=== PATIENT | male | born 1955 | race Caucasian/White ===

== ENCOUNTER → 2019-05-10 | Outpatient (CLI) | payer BC, MEDICARE ==
--- NOTE | 2019-05-10 09:19 | RAD ---
PROVIDED CLINICAL HISTORY/REASON FOR EXAM: M25.562,M25.552 Findings: Number of images: Four Location: Left knee Small joint effusion. No acute fracture. Obliteration of the medial compartment with lateral tibial translation, subchondral sclerosis and cyst formation. Tricompartmental osteophytes. Marked patellofemoral narrowing. IMPRESSION: Marked left knee osteoarthritis. No acute fracture. Electronically signed by: Shane Sorto MD 05/10/2019 9:18 AM CDT
--- NOTE | 2019-05-10 09:21 | RAD ---
PROVIDED CLINICAL HISTORY/REASON FOR EXAM: M25.562,M25.552 Findings: Number of images: One Location: Pelvis Lower lumbar spondylosis. Heterogeneous sclerosis overlying the left iliac bone measuring 2.1 cm. This is indeterminate whether it is within soft tissues or the bone itself. No acute fracture. Mild bilateral hip osteoarthritis. No dislocation. Osteopenia. IMPRESSION: 1. Heterogeneous sclerosis overlying the left iliac bone. Recommend CT pelvis for further evaluation. 2. No acute fracture or dislocation. Electronically signed by: Shane Sorto MD 05/10/2019 9:20 AM CDT
== END ==
LOC: RAD 08:05
PROVIDERS: ATTEND Orthopaedic Surgery
DX: M17.12 Unilateral primary osteoarthritis, left knee (principal); M89.8X8 Other specified disorders of bone, other site; M25.552 Pain in left hip

== ENCOUNTER 2019-06-26 05:54 | Inpatient (IN) | payer MEDICARE ==
--- NOTE | 2019-06-14 07:58 | HP ---
CHIEF COMPLAINT: Left knee pain. HISTORY OF PRESENT ILLNESS: Mr. Franks is a 63-year-old male with a history of pain in the knee that has been going on for years. It has been getting progressively worse and he has had multiple injections. He has had knee arthroscopy as well. His pain continues to be a 10 in intensity although he does work. The pain does affect his daily activities. It is sharp in nature and aching at night. He takes occasional Tylenol and Aleve, but this fails to give him full relief. Because of his ongoing symptoms and failure of conservative measures, he has requested operative intervention. This does not seem to affect his contralateral side. He has requested total knee arthroplasty. PAST SURGICAL HISTORY: 1. Knee arthroscopy. MEDICATIONS: 1. Zyrtec. 2. Tylenol. 3. Aleve. PAIN CONTRACT: None. ALLERGIES: NO KNOWN DRUG ALLERGIES. CODE STATUS: Full code. IMMUNIZATIONS: Up to date. SOCIAL HISTORY: He smokes about one pack a day, drinks a couple of times a week, but does not use any recreational drugs. FAMILY HISTORY: None pertinent to today's complaint. REVIEW OF SYSTEMS: Negative except as indicated in the History of Present Illness. PHYSICAL EXAMINATION: VITAL SIGNS: Blood pressure 131/81. Pulse 65. Height 5'8". Weight 196 pounds. MENTAL STATUS: The patient is awake, alert, and is able to give a good history and participate in the physical. The patient is oriented to person, place and time. SKIN: Normal tone and turgor. HEENT: Normocephalic, atraumatic. Pupils equal, round and reactive. Mucosal membranes are moist and appear healthy. NECK: Normal range of motion. No thyromegaly, no lymphadenopathy. CHEST: Normal respiratory excursion. CARDIAC: Regular rate and rhythm. No murmurs, rubs or gallops. MUSCULOSKELETAL: Bilateral upper extremities show full active range of motion. He has intact sensation. They are warm and well perfused. There are no deformities. Strength is 5/5. There is no crepitus and no malalignment of the extremities. The right lower extremity shows full range of motion in the hip and knee. Sensation is intact throughout the extremity. It is warm and well perfused. He has no malalignment and there are no deformities. The left lower extremity shows severe pain with range of motion of the knee. He has moderate effusion. He has varus deformity with slight laxity in varus stress testing. He does maintain full extension. He has flexion to 125 degrees with crepitus. He has no anterior or posterior laxity. He has pain with patellar mobilization. The hip, ankle and digits show full active range of motion without deformity and without pain. IMAGING: My review of his x-rays show severe osteoarthritis. ASSESSMENT: 1. Osteosarcoma. PLAN: The plan at this point is for total knee arthroplasty. We have discussed the risks, benefits, and alternatives to that and the patient has given informed consent. #[id number] [facility]
[2019-06-26] MEDS ORDERED: SODIUM CHLORIDE 0.9% 1000ML 0 ML ONE (07:53)
[2019-06-26] MEDS ORDERED: TRANEXAMIC ACID 1,000 MG/10 ML VIAL ONE ×2 (07:54→07:55)
[2019-06-26] MEDS ORDERED: SODIUM CHLORIDE 0.9% 250ML 250 ML ONE ×3 (07:54→20:50)
[2019-06-26] MEDS ORDERED: VANCOMYCIN HCL INJ 1,000 MG VIAL IVPB ONE ×3 (07:54→20:51)
[2019-06-26] MEDS ORDERED: ceFAZolin SODIUM 1 GM VIAL ONE ×2 (07:54→08:57)
[2019-06-26] MEDS ORDERED: LACTATED RINGERS 1,000 ML ONE (07:54)
[2019-06-26] MEDS ORDERED: SODIUM CHLORIDE 0.9% 100ML 100 ML IVPB ONE (07:55)
[2019-06-26] MEDS ORDERED: MIDAZOLAM INJ 5 MG/5 ML VIAL ONE (10:05)
[2019-06-26] MEDS ORDERED: MORPHINE SULFATE *EPIDURAL* 0.5 MG/ML VIAL ONE (10:05)
[2019-06-26] MEDS ORDERED: ACETAMINOPHEN IV 1000MG 100 ML ONE (10:05)
[2019-06-26] MEDS ORDERED: fentaNYL CITRATE INJ 50 MCG/ML AMP ONE (10:05)
[2019-06-26] MEDS ORDERED: KETAMINE HCL 50 MG/ML SYG IV ONE (10:06)
[2019-06-26] MEDS ORDERED: MAGNESIUM SULFATE INJ 1 GM/2 ML VIAL ONE (10:08)
[2019-06-26] MEDS: BUPIVACAINE 0.5% 30 ML VIAL INJ ONE ×2 (11:12→12:22)
[2019-06-26] MEDS: VANCOMYCIN HCL INJ 1,000 MG VIAL IVPB ONE ×2 (11:13→12:23)
[2019-06-26] MEDS: ceFAZolin SODIUM 1 GM VIAL ONE ×2 (11:13→12:23)
[2019-06-26] MEDS: BUPIVACAINE LIPOSOME 13.3 MG/ML VIAL INJ ONE ×2 (11:13→12:22)
[2019-06-26] MEDS ORDERED: ELECTROLYTE-A 1,000 ML IVS ONE (11:39)
[2019-06-26] MEDS ORDERED: HYDROcodone 5MG/APAP 325MG 1 EA TAB PO PRN (12:47)
[2019-06-26] MEDS ORDERED: PROMETHAZINE HCL INJ 12.5 MG in SODIUM CHLORIDE 0.9% 50ML 50 ML IVPB PRN (12:47)
[2019-06-26] MEDS ORDERED: ALUMINUM & MAGNESIUM HYDROXIDE 30 ML UD PO PRN (12:47)
[2019-06-26] MEDS ORDERED: BISACODYL SUPPOSITORY 10 MG PR PRN (12:47)
[2019-06-26] MEDS ORDERED: NALOXONE HCL INJ 0.4 MG/ML VIAL IV PRN (12:47)
[2019-06-26] MEDS ORDERED: ONDANSETRON INJ 4 MG/2 ML VIAL IV PRN (12:47)
[2019-06-26] MEDS ORDERED: BENZOCAINE-MENTH LOZ (CEPACOL) 1 EA LOZ MT PRN (12:47)
[2019-06-26] MEDS ORDERED: ACETAMINOPHEN 500 MG TAB PO PRN (12:47)
[2019-06-26] MEDS ORDERED: SODIUM CHLORIDE 0.9% (FLUSH) 10 ML SYG IV PRN (12:47)
[2019-06-26] MEDS ORDERED: MAGNESIUM HYDROXIDE 30 ML UD PO PRN (12:47)
[2019-06-26] MEDS ORDERED: PROMETHAZINE HCL INJ 25 MG in SODIUM CHLORIDE 0.9% 50ML 50 ML IVPB PRN (12:47)
[2019-06-26] MEDS ORDERED: TEMAZEPAM 15 MG CAP PO PRN (12:47)
[2019-06-26] MEDS ORDERED: ZOLPIDEM TARTRATE 5 MG TAB PO PRN (12:47)
[2019-06-26] MEDS ORDERED: MORPHINE SULFATE INJ 10 MG/ML VIAL IV PRN (12:47)
[2019-06-26] MEDS ORDERED: ACETAMINOPHEN 325 MG TAB PO PRN (12:47)
[2019-06-26] MEDS ORDERED: TRANEXAMIC ACID INJ 1,000 MG in SODIUM CHLORIDE 0.9% 100ML 100 ML IVPB ONE (12:47)
[2019-06-26] MEDS ORDERED: DEX 5% W/NACL 0.45% 1000ML 1,000 ML IVS PRN (12:47)
[2019-06-26] MEDS ORDERED: MORPHINE SULFATE INJ 10 MG/ML VIAL IM PRN (12:47)
[2019-06-26] MEDS ORDERED: MORPHINE PCA 1 MG/ML 100 ML BAG IVPB SCH (13:00)
[2019-06-26] MEDS ORDERED: IV SET AND CAP CHANGE INJ INJ SCH (13:00)
--- NOTE | 2019-06-26 16:32 | CONS ---
DATE OF CONSULTATION: 06/26/19 SUPERVISING PHYSICIAN: Yuri Hyde M.D. REASON FOR CONSULTATION: Medical management. HISTORY OF PRESENT ILLNESS: This is a 63 year-old male patient who has a history of left knee osteoarthritis. He failed conservative measures as an outpatient and decided to electively get a left total knee arthroplasty. This was done today without any intraoperative complications. At time of examination the patient is alert and oriented and does not complain of any significant pain. PAST MEDICAL HISTORY: Negative, according to the patient. PAST SURGICAL HISTORY: 1. Left wrist surgery after a fracture. CURRENT MEDICATIONS: He does not take any at home. ALLERGIES: NO KNOWN DRUG ALLERGIES. FAMILY HISTORY: Reviewed and the patient denies any significant past medical history in grandparents, parents or siblings. SOCIAL HISTORY: The patient smokes a pack per day and has for several years. Occasional alcohol on the weekends but nothing excessive. No illicit drugs. REVIEW OF SYSTEMS: CONSTITUTIONAL: No fever or chills. No recent weight loss or weight gain. HEENT: No headaches, vision changes, ear pain, nasal congestion or throat pain. RESPIRATORY: No cough, hemoptysis or pleuritic chest pain. CARDIOVASCULAR: No chest pain, palpitations or peripheral edema. GASTROINTESTINAL: No nausea, vomiting, diarrhea, constipation or abdominal pain. GENITOURINARY: No dysuria, frequency or flank pain. HEMATOLOGIC: No easy bruising or transfusion reaction. ENDOCRINE: No polydipsia, polyuria or polyphagia. No heat or cold intolerance. MUSCULOSKELETAL: Positive for left knee pain prior to surgery. Postoperatively he is really pretty comfortable after anesthesia. He has a pain pump as well. NEUROLOGIC: No syncope or paresthesias . PHYSICAL EXAMINATION: VITAL SIGNS: Blood pressure 94/66, heart rate 77, respiratory rate 21, temperature 98.2, oxygen saturation 98%. GENERAL: Mr. Franks is a 63 year-old male patient in no active distress. CHEST: Lungs are clear to auscultation bilaterally. HEART: Regular rate and rhythm. Normal S1 and S2. ABDOMEN: Soft. Positive bowel sounds. GENITOURINARY: Exam is deferred. EXTREMITIES: Lower extremities with a left knee which is in Eduardo type dressing currently in the ice pack as well. NEUROLOGIC: The patient is alert and oriented. IMPRESSION: 1. Left knee osteoarthritis status post left total knee arthroplasty. 2. Nicotine dependency. PLAN: At this time we will admit the patient to the floor for postoperative orders, including physical therapy and pain control. He will start anticoagulation approximately 12 hours after surgery. We will continue to evaluate his progress and need for further physical therapy post hospitalization. #[id number] [facility]
[2019-06-26] MEDS ORDERED: ceFAZolin SODIUM 2 GRAMS PREMI 50 ML IVPB ONE ×2 (17:44→20:50)
[2019-06-26] MEDS: VANCOMYCIN HCL INJ 1,000 MG in SODIUM CHLORIDE 0.9% 250ML 250 ML IVPB SCH (17:57)
[2019-06-26] MEDS: ceFAZolin SODIUM 2 GRAMS PREMI 2 GM in PREMIX BAG 1 BAG IVPB SCH ×2 (18:05→23:39)
[2019-06-26] MEDS: CELECOXIB 100 MG CAP PO SCH (18:08)
[2019-06-26] MEDS: NICOTINE PATCH 21 MG TD SCH (18:14)
[2019-06-26] MEDS ORDERED: ENOXAPARIN SODIUM 30 MG/0.3 ML SYG SUBCU ONE (20:50)
[2019-06-26] MEDS: DOCUSATE CALCIUM 240 MG CAP PO SCH (22:01)
[2019-06-26] MEDS: ENOXAPARIN SODIUM 30 MG/0.3 ML SYG SUBCU SCH (23:00)
[2019-06-27] MEDS: CETIRIZINE HCL 10 MG TAB PO PRN (04:57)
[2019-06-27] MEDS: VANCOMYCIN HCL INJ 1,000 MG in SODIUM CHLORIDE 0.9% 250ML 250 ML IVPB SCH (06:08)
[2019-06-27] MEDS: CYCLOBENZAPRINE HCL 10 MG TAB PO PRN ×2 (06:19→18:44)
[2019-06-27] MEDS: traMADol HCL 50 MG TAB PO PRN (06:20)
[2019-06-27] MEDS ORDERED: raNITIdine HCL INJ 25 MG/ML VIAL ONE (07:00)
[2019-06-27] MEDS ORDERED: ePHEDrine SULF 50 MG/ML ONE (07:00)
[2019-06-27] MEDS ORDERED: SODIUM CHLORIDE 0.9% 50 ML VIAL ONE (07:00)
[2019-06-27] MEDS ORDERED: DEXAMETHASONE INJ 10 MG/ML VIAL ONE (07:00)
[2019-06-27] MEDS ORDERED: GLYCOPYRROLATE 0.2 MG/ML VIAL ONE (07:00)
[2019-06-27] MEDS ORDERED: PROPOFOL 200 MG/20 ML VIAL IV ONE (07:00)
[2019-06-27] MEDS ORDERED: ceFAZolin SODIUM 2 GRAMS PREMI 50 ML IVPB ONE ×3 (07:54→22:00)
[2019-06-27] MEDS: ceFAZolin SODIUM 2 GRAMS PREMI 2 GM in PREMIX BAG 1 BAG IVPB SCH ×3 (08:41→22:01)
[2019-06-27] MEDS: NICOTINE PATCH 21 MG TD SCH (08:41)
[2019-06-27] MEDS: CELECOXIB 100 MG CAP PO SCH ×2 (08:42→16:52)
[2019-06-27] MEDS ORDERED: [UNRECOGNIZED DRUG - REMARK] PO PRN (08:49)
--- NOTE | 2019-06-27 11:24 | PN ---
SUPERVISING PHYSICIAN: Yuri Hyde MD DATE: 06/27/19 SUBJECTIVE: The patient is sitting up in his chair in his room. He has no complaints of nausea, vomiting, chest pain or shortness of breath. He feels he is progressing well. OBJECTIVE: VITAL SIGNS: Temperature 100.1. Heart rate 94. Blood pressure 106/59. Respiratory rate 18. O2 saturation 96%. It has been as low as 89% on room air. RESPIRATORY: Essentially clear to auscultation bilaterally. CARDIAC: Regular rate and rhythm. GASTROINTESTINAL: Abdomen is soft, nondistended, nontender. Bowel sounds are positive. EXTREMITIES: Bilateral pedal pulses are palpable at +2. There is a dressing to his left knee that is dry and intact. NEUROLOGIC: Awake, alert and oriented times three. LABORATORY: Hemoglobin 11.4, hematocrit 33.3. Sodium 128, potassium 4.2, chloride 97, BUN 15, creatinine 0.79. All other labs and films have been reviewed via the EMR. ASSESSMENT: 1. Left knee osteoarthritis status post left total knee arthroplasty performed by Dr. Abdirahman Pacheco, orthopedic surgeon, postoperative day #1. 2. Nicotine dependency. PLAN: We will continue present supportive care. Orthopedic issues will be per Dr. Abdirahman Pacheco, orthopedic surgeon. He will continue with physical therapy for strengthening and conditioning. We will titrate him off his [employer]PER[employer] pump and change to oral p.o. pain medications. I have encouraged good pulmonary hygiene, coughing, deep breathing and using his incentive spirometry. At the request of Dr. Pacheco, we have continued his antibiotic treatments for 24 additional hours. I anticipate discharge tomorrow or the next day with outpatient physical therapy. #[id number] [facility]
--- NOTE | 2019-06-27 11:41 | RAD ---
EXAM DESCRIPTION: Knee,Left 1 or 2 Views CLINICAL HISTORY: 63 years Male, TKA COMPARISON: None. Findings: Number of images: 2 Location: Left knee Recent left total knee arthroplasty. No evidence of hardware complication. No acute fracture or dislocation. Expected postsurgical appearance of the overlying soft tissues. Cylindrical lucency extending down the tibial shaft appears postsurgical. IMPRESSION: Recent left total knee arthroplasty. No evidence of hardware complication. Electronically signed by: Shane Sorto MD 06/27/2019 11:39 AM CDT
--- NOTE | 2019-06-27 11:45 | RAD ---
EXAM DESCRIPTION: Fluoroscopy Up to 1Hr CLINICAL HISTORY: LEFT TKA COMPARISON: None. TECHNIQUE: Fluoroscopy time is not given. A single AP spot film. FINDINGS: Exam demonstrates placement of a left total knee arthroplasty. Exam is otherwise unremarkable. IMPRESSION: Left total knee arthroplasty Electronically signed by: Ronaldo Keenan MD 06/27/2019 11:44 AM CDT
--- NOTE | 2019-06-27 11:49 | PN ---
DATE: 06/27/19 SUBJECTIVE: Mr. Franks is doing really well. His pain is well controlled. OBJECTIVE: Afebrile. Vital signs stable. Dressing is clean, dry and intact. ASSESSMENT: Status post total knee arthroplasty. PLAN: The plan at this point is for him to begin weightbearing as tolerated today. He will continue to use CPM to increase as tolerated. [facility][id number] [facility]
[2019-06-27] MEDS: ENOXAPARIN SODIUM 30 MG/0.3 ML SYG SUBCU SCH ×2 (12:34→22:02)
[2019-06-27] MEDS: MAGNESIUM OXIDE 400 MG TAB PO SCH (12:34)
[2019-06-27] MEDS: HYDROcodone 10MG/APAP 325MG 1 EA TAB PO PRN ×2 (13:21→22:09)
[2019-06-27] MEDS ORDERED: SODIUM CHLORIDE 0.9% 250ML 250 ML ONE (16:30)
[2019-06-27] MEDS ORDERED: VANCOMYCIN HCL INJ 1,000 MG VIAL IVPB ONE (16:31)
[2019-06-27] MEDS ORDERED: VANCOMYCIN HCL INJ 1,000 MG in SODIUM CHLORIDE 0.9% 250ML 250 ML IVPB SCH (18:00)
[2019-06-27] MEDS: DOCUSATE CALCIUM 240 MG CAP PO SCH (22:01)
[2019-06-28] MEDS ORDERED: ceFAZolin SODIUM 2 GRAMS PREMI 50 ML IVPB ONE (02:01)
[2019-06-28] MEDS: HYDROcodone 10MG/APAP 325MG 1 EA TAB PO PRN ×2 (02:04→08:18)
[2019-06-28] MEDS: ceFAZolin SODIUM 2 GRAMS PREMI 2 GM in PREMIX BAG 1 BAG IVPB SCH (05:46)
[2019-06-28] MEDS: CETIRIZINE HCL 10 MG TAB PO PRN (05:55)
[2019-06-28] MEDS: traMADol HCL 50 MG TAB PO PRN (05:56)
[2019-06-28] MEDS: CELECOXIB 100 MG CAP PO SCH (07:29)
[2019-06-28] MEDS: NICOTINE PATCH 21 MG TD SCH (08:14)
[2019-06-28] MEDS: MAGNESIUM OXIDE 400 MG TAB PO SCH (08:14)
[2019-06-28] MEDS ORDERED: SODIUM CHLORIDE 0.9% (FLUSH) 10 ML SYG IV SCH (09:00)
--- NOTE | 2019-06-28 09:16 | OP ---
DATE OF PROCEDURE: 06/26/19 PREOPERATIVE DIAGNOSIS: 1. Left knee osteoarthritis. POSTOPERATIVE DIAGNOSIS: 1. Left knee osteoarthritis. PROCEDURE: 1. Left total knee arthroplasty. SURGEON: Abdirahman Pacheco MD. TURN OPERATOR: Derrell Mcfarland CST, SA-C. ANESTHESIA: General anesthesia. COMPLICATIONS: None. FINDINGS: Severe osteoarthritis and severe varus deformity. INDICATION: Mr. Franks has a history of severe knee pain for which he has tried conservative measures. He is at a point now where it is affecting his daily living. Because of that and his failure of conservative measures, he has requested operative intervention. After discussing the risks, benefits and alternatives to that, the patient has given informed consent for total knee arthroplasty. PROCEDURE: The patient was brought to the Operating Room and placed in supine position. General anesthesia was induced and the patient's leg was sterilely prepped and draped. Following prepping and draping, the distal femur was exposed and using an intramedullary guide, the distal femoral cut was made. The appropriate sized cutting block was measured, pinned into place, and the anterior, posterior, and chamfer cuts were made. The ACL was transected and the tibia was subluxed. Both the medial and lateral menisci were removed. An intramedullary guide was used to make the proximal tibial cut. The appropriate sized base plate was placed and a trial polyethylene was placed. The trial femur was placed, the knee was reduced, and the knee was taken through a range of motion. The knee was stable in anterior, posterior, varus and valgus stress. The patella tracked anatomically without evidence of subluxation or dislocation. After trialing, the trial components were removed and the bony surfaces were thoroughly irrigated with saline. Following irrigation, the surfaces were dried and the final components were cemented into place. The excess cement was removed and the remaining cement was allowed to cure. The knee was again taken through a range of motion to confirm stability. The wound was then irrigated with saline and closure was performed using PDS to approximate the arthrotomy followed by closure of the subcutaneous tissues with a combination of running and interrupted Monocryl sutures. Sterile dressing was placed. The patient was awoken from anesthesia and taken to Recovery. POSTOPERATIVE PLAN: The patient will be weight-bearing as tolerated on postoperative day 1. COMPONENTS: Thoreau Triathlon knee, size 6 femur, size 6 tibia, 16 mm insert. [facility][id number] [facility]
[2019-06-28] MEDS: ENOXAPARIN SODIUM 30 MG/0.3 ML SYG SUBCU SCH (11:26)
[2019-06-28 11:29] VITALS: O2SAT 96
[2019-06-28 11:31] VITALS: BP 109/81; TEMP 98.9
[2019-06-29] MEDS ORDERED: MAGNESIUM HYDROXIDE 30 ML UD PO ONE (21:00)
[2019-06-29] MEDS ORDERED: BISACODYL SUPPOSITORY 10 MG PR ONE (21:00)
--- NOTE | 2019-07-08 09:22 | DS ---
SUPERVISING PHYSICIAN: Yuri Hyde MD DISCHARGE DIAGNOSIS: 1. Left knee osteoarthritis status post left total knee arthroplasty performed by Dr. Abdirahman Pacheco, orthopedic surgeon, postoperative day #2. 2. Nicotine dependency. HISTORY OF PRESENT ILLNESS: This is a 63-year-old male patient who has a history of left knee osteoarthritis. He failed conservative measures as an outpatient and decided to electively get a left total knee arthroplasty. He consulted Dr. Abdirahman Pacheco, orthopedic surgeon, for operative intervention. He was admitted to the hospital for the procedure. There were no intraoperative complications. He was admitted to the Medical/Surgical Floor after his surgical intervention. HOSPITAL COURSE: His home medications were restarted. Anticoagulation therapy was started as per protocol. He had physical therapy for strengthening and conditioning. He completed his acute care measures and will be discharged home today in stable condition. LABORATORY: His postoperative hemoglobin and hematocrit were 11.4 and 33.3. UDS was negative. X-rays are per the history of present illness. DISCHARGE PLAN: The patient will be discharged home in stable condition. He is to resume his previous diet. His activity is as per Physical Therapy. He is to followup with Dr. Abdirahman Pacheco on 07/11/19 at 11:15 AM. In addition to his routine medications, he is to have cyclobenzaprine, nicotine patch and 9 additional days of Xarelto. He is to return to the hospital or followup with Dr. Pacheco for any problems or complications. He will have outpatient physical therapy. DISCHARGE MEDICATIONS: 1. Cetirizine. 2. Cyclobenzaprine. 3. Hydrocodone. 4. Nicotine patchy. 5. Xarelto. #[id number] [facility]
== END 2019-06-28 12:41 | disposition home or self-care (01) | DRG 470 ==
LOC: AMB 05:54 → MS 14:11
PROVIDERS: ADMIT Orthopaedic Surgery; ATTEND Nurse Practitioner
PROC: 0SRD0J9 Replacement of Left Knee Joint with Synthetic Substitute, Cemented, Open Approach (ICD-10-PCS; principal; 2019-06-26 10:14)
DX: M17.12 Unilateral primary osteoarthritis, left knee (principal); F17.210 Nicotine dependence, cigarettes, uncomplicated; Z79.1 Long term (current) use of non-steroidal anti-inflammatories (NSAID); Z79.899 Other long term (current) drug therapy

== ENCOUNTER 2019-07-17 09:04 | Emergency (ER) | payer MEDICARE ==
[2019-07-17] MEDS ORDERED: ASPIRIN (CHEWABLE) 81 MG TAB PO ONE (09:14)
[2019-07-17 09:15] VITALS: TEMP 96.7
[2019-07-17] MEDS ORDERED: NITROGLYCERIN 0.4 MG 25 EA TAB SL ONE ×4 (09:15→09:56)
[2019-07-17] MEDS ORDERED: MORPHINE SULFATE INJ 10 MG/ML VIAL ONE (09:24)
[2019-07-17] MEDS ORDERED: ONDANSETRON INJ 4 MG/2 ML VIAL ONE (09:24)
[2019-07-17] MEDS ORDERED: MORPHINE SULFATE INJ 10 MG/ML VIAL IV ONE (09:30)
[2019-07-17] MEDS ORDERED: ONDANSETRON INJ 4 MG/2 ML VIAL IV ONE (09:31)
[2019-07-17] MEDS ORDERED: CLOPIDOGREL 75 MG TAB PO ONE (09:34)
[2019-07-17] MEDS ORDERED: SODIUM CHLORIDE 0.9% 1000ML 1,000 ML IVS ONE (09:35)
[2019-07-17] MEDS ORDERED: TENECTEPLASE 50 MG VIAL IV ONE (09:36)
[2019-07-17] MEDS ORDERED: HEPARIN SODIUM (PORCINE) 5,000 U/ML VIAL IV ONE (09:37)
[2019-07-17] MEDS ORDERED: HEPARIN PREMIX 500 ML ONE (09:38)
[2019-07-17] MEDS ORDERED: HEPARIN SODIUM (PORCINE) 10,000 UNITS/ML VIAL ONE (09:39)
[2019-07-17] MEDS ORDERED: HEPARIN PREMIX 25,000 UNITS in PREMIX BAG 1 BAG IVS SCH (09:45)
--- NOTE | 2019-07-17 09:58 | RAD ---
EXAM DESCRIPTION: Chest,1 View CLINICAL HISTORY: myocardial infarction COMPARISON: None available FINDINGS: The cardiomediastinal silhouette is unremarkable. The tip of the right costophrenic angle is excluded from this exam, but no airspace consolidation or pleural effusion is seen. The lung volumes are at the upper limits of normal range. There is no pneumothorax or acute fracture. IMPRESSION: Upper normal lung volumes which may be related to deep inspiration or underlying COPD. No acute intrathoracic abnormality. Electronically signed by: Pedro Pablo Krishna MD 07/17/2019 9:57 AM CDT
--- NOTE | 2019-07-17 10:18 | ED.PDOC ---
History of Present Illness - General Chief Complaint: Chest Pain/ND Stated Complaint: chest pain Time Seen by Provider: 07/17/19 10:15 Source: patient, RN notes reviewed, Vital Signs reviewed, family - Exam Limitations: no limitations - History of Present Illness Initial Comments: patient is a 63-year-old white male who presents with complaints of chest pain starting approximately 3 hours prior to arrival. Patient describes the chest pain is squeezing in nature. He has some associated nausea with shortness of breath. There is no diaphoresis or vomiting. Patient had similar pain last week but it was intermittent and resolved on its own after only a few minutes. patient is exactly 3 weeks status post total left knee replacement. patient denies any headaches, blurry vision, dizziness, diarrhea, abdominal pain or knee pain at this time. Timing/Duration: 1-3 hours Severity/Quality: severe, pressure, tightness Location: substernal Chest Pain Radiation: arms - bilateral Activities at Onset: none Prior Chest Pain/Cardiac Workup: no prior cardiac workup Improving Factors: nothing Worsening Factors: nothing Nitro Today/Relief: no nitro taken today Aspirin Treatment Today: no aspirin today Associated Symptoms: shortness of breath Allergies/Adverse Reactions: Allergies NO KNOWN ALLERGY Allergy (Verified 06/26/19 15:16) Home Medications: Ambulatory Orders Cetirizine HCl [Zyrtec Allergy] 1 tablet PO PRN PRN 06/26/19 Cyclobenzaprine HCl [Flexeril] 10 mg PO Q8H PRN #30 tab 06/28/19 HYDROcodone 5MG/APAP 325MG [[place] 5/325] 1 ea PO Q4H PRN tab 06/28/19 Nicotine Patch 21 mg [Habitrol Patch 21mg] 1 ea TD DAILY #30 patch 06/28/19 Rivaroxaban [Xarelto] 10 mg PO DAILY #9 tab 06/28/19 Review of Systems - Review of Systems Constitutional: States: see HPI EENTM: States: see HPI Respiratory: States: no symptoms reported, see HPI. Denies: short of breath Cardiology: States: see HPI, chest pain. Denies: palpitations Gastrointestinal/Abdominal: States: see HPI, nausea Genitourinary: States: no symptoms reported Musculoskeletal: States: joint pain - left knee pain status post total knee replacement 3 weeks ago. Skin: States: no symptoms reported Neurological: States: no symptoms reported All other Systems: Reviewed and Negative Past Medical History (General) - Patient Medical History Hx Seizures: No Hx Stroke: No Hx Dementia: No Hx Asthma: No Hx of COPD: No Hx Cardiac Disorders: No Hx Congestive Heart Failure: No Hx Pacemaker: No Hx Hypertension: No Hx Thyroid Disease: No Hx Diabetes: No Hx Gastroesophageal Reflux: No Hx Renal Disease: No Hx Cancer: No Hx of HIV: No Hx Hepatitis C: No Hx MRSA: No Surgical History: other - colonoscopy 5 weeks ago and total knee replacement on the left-hand side 3 weeks ago. - Vaccination History Hx Tetanus, Diphtheria Vaccination: Yes Hx Influenza Vaccination: No Hx Pneumococcal Vaccination: No - Social History Hx Tobacco Use: Yes Hx Chewing Tobacco Use: No Hx Alcohol Use: Yes Hx Substance Use: No Hx Substance Use Treatment: No Hx Depression: No Hx Physical Abuse: No Hx Emotional Abuse: No Hx Suspected Abuse: No Family Medical History - Family History Mother Family History: No Known Living Status: Physical Exam - Physical Exam General Appearance: Alert, Anxious, Obvious distress, Well Developed, Well Groomed, Well Hydrated, Well Nourished Eyes, Ears, Nose, Throat Exam: PERRL/EOMI, normal ENT inspection, pharynx normal Neck: non-tender, full range of motion, supple, normal inspection Respiratory: chest non-tender, lungs clear, normal breath sounds, no respiratory distress, no accessory muscle use, respiratory distress Cardiovascular/Chest: normal peripheral pulses, regular rate, rhythm, no edema, no gallop, no JVD, no murmur Peripheral Pulses: radial,right: 2+, radial,left: 2+ Gastrointestinal/Abdominal: normal bowel sounds, non tender, soft, no organomegaly, no pulsatile mass Extremity: normal range of motion, non-tender, no pedal edema, no calf tenderness, other - left knee with clean, dry and well-healing surgical incision status posttotal knee replacement. Neurologic: product marketer II-XII nml as tested, no motor/sensory deficits, alert, normal mood/affect, oriented x 3 Skin Exam: normal color, warm/dry Lymphatic: no adenopathy Progress - Progress Progress: 07/17/19 10:32 patient's chest pain improved from a 10 out of 10 to a 7 out of 10 after nitroglycerin, TNKase, heparin and morphine. Patient was transferred to [facility] for cardiac catheterization. Patient was stable upon discharge. - Results/Orders Results/Orders: 07/17/19 09:10 CARDIAC PANEL,ER Stat 07/17/19 09:15 EKG STAT 07/17/19 09:35 Sodium Chloride 0.9% 1000ML [Ns 1000 ml] 1,000 ml IVS ONCE 07/17/19 09:45 Heparin Premix [Heparin/D5w 25,000U/500ML] 25,000 units Premix Bag 1 bag IVS PRN Laboratory Results - last 24 hr 07/17/19 09:10 WBC 10.7 RBC 4.20 L Hgb 13.2 L Hct 39.0 L MCV 92.9 MCH 31.4 H MCHC 33.8 RDW 13.8 Plt Count 398 MPV 8.2 Absolute Neuts (auto) 6.50 Absolute Lymphs (auto) 3.10 Absolute Monos (auto) 0.70 Absolute Eos (auto) 0.20 Absolute Basos (auto) 0.10 Neutrophils % 61.1 Lymphocytes % 28.5 Monocytes % 7.0 Eosinophils % 2.1 Basophils % 1.3 PT 10.0 INR 1.00 PTT (SP) 23.7 Sodium 136 Potassium 3.7 Chloride 99 L Carbon Dioxide 21 Anion Gap 19.7 H BUN 22 H Creatinine 0.95 BUN/Creatinine Ratio 23.2 H Random Glucose 138 H Serum Osmolality 277.5 Calcium 10.4 H Magnesium 2.0 Creatine Kinase 24 L CK-MB (CK-2) 0.9 Troponin I 0.14 H* EKG at 0906 hrs. Normal sinus rhythm at 82 bpm, normal axis deviation, ST elevation in 1 [address] aVL with additional ST elevation in V2 through V6 consistent with an anterior lateral ST elevation ND, acute. Curtis Lindsay M.D. #[id number] - EKG/XRAY/CT Xray Comments: chest x-ray is within normal limits and shows no mediastinal widening. Departure - Departure Clinical Impression: Chest pain STEMI (ST elevation myocardial infarction) Qualifiers: Involved coronary artery: LAD coronary artery Qualified Code(s): I21.02 - ST elevation (STEMI) myocardial infarction involving left anterior descending coronary artery Disposition: Transfer to Hospital Condition: Serious Departure Forms: ED Discharge - Pt. Copy, Patient Portal Self Enrollment Referrals: Hammad Williamson MD [Primary Care Provider] - 1-2 Weeks Home Medications: Ambulatory Orders Cetirizine HCl [Zyrtec Allergy] 1 tablet PO PRN PRN 06/26/19 Cyclobenzaprine HCl [Flexeril] 10 mg PO Q8H PRN #30 tab 06/28/19 HYDROcodone 5MG/APAP 325MG [[place] 5/325] 1 ea PO Q4H PRN tab 06/28/19 Nicotine Patch 21 mg [Habitrol Patch 21mg] 1 ea TD DAILY #30 patch 06/28/19 Rivaroxaban [Xarelto] 10 mg PO DAILY #9 tab 06/28/19 Critical Care Note - Critical Care Note Total Time (mins): 45 Transfer to Outside Facility - Transfer Information Accepting Facility: [facility] Reason for Transfer: collaborative teacher
[2019-07-17 10:28] VITALS: BP 117/72; O2SAT 99
== END 2019-07-17 10:10 | disposition short-term general hospital (02) ==
LOC: ER 09:04
DX: I21.02 ST elevation (STEMI) myocardial infarction involving left anterior descending coronary artery (principal); R11.0 Nausea; Z87.891 Personal history of nicotine dependence; Z96.652 Presence of left artificial knee joint
CPT/HCPCS: 71045; 80048; 82550; 82553; 84484; 85025; 85610; 85730; 93005; J1644; J2270; J2405; J3101; J7030

== ENCOUNTER → 2019-08-07 | Outpatient (CLI) | payer MEDICARE ==
--- NOTE | 2019-08-08 15:07 | CT ---
Procedure: CT LUNG SCREENING Exam Date: 07/10/2019. Ordering Provider: Christel Shah Clinical Indication: PERSONAL HISTORY OF TOBACCO USE . Smoking cessation 2 months. 20 pack years. This patient meets eligibility criteria for low-dose CT lung cancer screening. Follow-up right lung apex nodule, Lung RADS 4AS. Possible lesion T1 vertebral body. Comparison: Low-dose lung screening CT scan 10 May 2019 Technique: Using a multislice scanner, sequential helical axial imaging was obtained in the thorax, 2.5 mm thickness, 2.5 mm separation, from the level of the thoracic inlet through the lung bases without IV contrast. A low dose protocol was utilized for BMI less than 30: BMI: 28.6. CTDI: 1.76 mGy. 120. kVp. 45 mA. DLP 75.9 mGy-centimeters. 2D sagittal and coronal reconstructed images, 6.0 mm thickness, were obtained. This exam was performed according to our departmental dose optimization program which includes use of automated exposure control, adjustment of the mA and/or kV according to patient size and/or use of iterative reconstruction technique. Nodule measurements under 10 mm are given as mean value of 3 axes diameters. FINDINGS: Lungs and large airways: Again seen is a dense process in the posterior right apex on axial images 12/04- stable since the prior study. More likely a pleural parenchymal scar than a true nodule. Stable pleural parenchymal scars in the left true apex and the medial left apex. Bilateral paraseptal bulla and blebs more common right than left and more prevalent upper lung donohue. Pleura and space: Scattered bilateral focal pleural thickening more right than left. Mediastinum and billy: evaluation limited by low dose technique and lack of IV contrast. Unremarkable and stable since the prior study. Heart and great vessels: A stent has been placed in the LAD since the prior study. Minimal atherosclerotic calcification in the brachiocephalic vessels and aorta. Chest wall, lower neck, axillae: Evaluation also limited by same factors as described above. Negative. Upper abdomen: Evaluation limited by low-dose technique. No free air or fluid in the included peritoneal space. Gallbladder visualized partially. Partial visualization of 4.6 cm posterior left renal cyst (density less than +5) stable since the prior study. Normal size and density of the spleen and adrenal glands. Osseous structures: Evaluation limited by low dose MIP technique. No acute changes. Sclerotic density superior T1 vertebral body stable. IMPRESSION: 1. Stable density posterior lateral right apex, more likely to represent pleural thickening than stable nodule. Stable pleural thickening in the left apex. No new nodules and no masses. No focal infiltrates.. [facility] Best Practice Recommendations: please see below for Lung RADS category and FOLLOW-UP.* *Lung RADS category CATEGORY 2S - Nodules with a very low likelihood (less than 1%) of becoming a clinically active cancer due to size or lack of growth. Nodules: Perifissural nodule(s) < 10 mm. (526mm3). Solid or part solid nodule(s) less than 6mm (113.1 mm3), new solid nodule less than 4mm (33.5 mm3). Ground glass nodule(s) less than 30mm (85969.2 mm3) or unchanged or slow growing ground glass nodule 30mm or greater. Cat 3 or 4 nodule unchanged for 3 or more months. FOLLOW-UP: Continue annual screening with a Low Dose Chest CT in 12 months for re-evaluation. 2. Lung RADS Modifier S - Clinically Significant or Potentially Clinically Significant Findings (non lung cancer). Stable sclerotic lesion T1 vertebral body. If clinically indicated, consider follow-up radionuclide bone scan to survey for additional bone lesions and correlate with clinical history. Electronically signed by: Derrell Hendrix MD 08/08/2019 3:05 PM CDT
== END ==
LOC: CT 09:00
PROVIDERS: ATTEND Nurse Practitioner Family
DX: Z87.891 Personal history of nicotine dependence (principal); R91.8 Other nonspecific abnormal finding of lung field

== ENCOUNTER 2020-03-23 14:41 | Emergency (ER) | payer MEDICARE ==
--- NOTE | 2020-03-23 15:04 | ED.PDOC ---
History of Present Illness - General Chief Complaint: Trauma Stated Complaint: rib pain after fall Time Seen by Provider: 03/23/20 14:47 - History of Present Illness Initial Comments: 64 M +pmh presents with spouse to ED c/o right inferior anterior and lateral rib pain. Pt states 1-2 weeks ago he fell out of a bobcat tractor and landed on his right side. He had rib pain and bruising at that time which slowly resolved until today. Pt informs he was getting out of his boat today when his chest bumped the boat. It was at that moment he felt the pain return with "pops". He denies alleviating factors. Denies known h/o similar sx's. He currently denies cardiogenic central/exertional CP, SOB, n/v/d, back pain, head/neck injury/trauma with fall, and/or syncope. He also notes he has recent BLE edema but he is f/u with his PCP for further evaluation. Pt has no other complaints at this time. Allergies/Adverse Reactions: Allergies NO KNOWN ALLERGY Allergy (Verified 06/26/19 15:16) Home Medications: Ambulatory Orders Cetirizine HCl [Zyrtec Allergy] 1 tablet PO PRN PRN 06/26/19 Cyclobenzaprine HCl [Flexeril] 10 mg PO Q8H PRN #30 tab 06/28/19 HYDROcodone 5MG/APAP 325MG [[place] 5/325] 1 ea PO Q4H PRN tab 06/28/19 Lidocaine 5% Patch [Lidoderm Patch] 1 ea TOP Q12HRS PRN 5 Days #10 patch 03/23/20 Review of Systems - Review of Systems Constitutional: Denies: chills, fever EENTM: Denies: blurred vision, double vision Respiratory: Denies: cough, orthopnea, short of breath Cardiology: States: edema - unassociated and being evaluated by PCP. Denies: chest pain, palpitations Gastrointestinal/Abdominal: Denies: abdominal pain, diarrhea, nausea, vomiting Genitourinary: Denies: dysuria, hematuria Musculoskeletal: States: muscle pain, other - right anterior and lateral inferior chest wall pain s/p fall. Denies: back pain Neurological: States: other - denies LOC. Denies: headache, numbness, tingling Past Medical History (General) - Patient Medical History Hx Seizures: No Hx Stroke: No Hx Dementia: No Hx Asthma: No Hx of COPD: No Hx Cardiac Disorders: Yes - NC (07/2019) Hx Congestive Heart Failure: Yes Hx Pacemaker: No Hx Hypertension: Yes Hx Thyroid Disease: No Hx Diabetes: No Hx Gastroesophageal Reflux: No Hx Renal Disease: No Hx Cancer: No Hx of HIV: No Hx Hepatitis C: No Hx MRSA: No - Vaccination History Hx Tetanus, Diphtheria Vaccination: Yes Hx Influenza Vaccination: No Hx Pneumococcal Vaccination: No - Social History Hx Tobacco Use: Yes Hx Chewing Tobacco Use: No Hx Alcohol Use: Yes Hx Substance Use: No Hx Substance Use Treatment: No Hx Depression: No Hx Physical Abuse: No Hx Emotional Abuse: No Hx Suspected Abuse: No - Activities of Daily Living Hospice Agency (if applicable):: None - Female History Patient is a Female of Child Bearing Age (10 -59 yrs old): No - Triage Comment ED Triage Comment: right sided rib pain after falling out of bobcat x2 wks ago and falling out of boat again this morning. Family Medical History - Family History Mother Family History: No Known Living Status: Physical Exam - Physical Exam General Appearance: Alert, Comfortable, No apparent distress Eye Exam: bilateral normal Ears, Nose, Throat: hearing grossly normal Neck: non-tender, full range of motion, supple, normal inspection Respiratory: lungs clear, normal breath sounds, no respiratory distress, no accessory muscle use, other - + anterior and lateral chest wall TTP from ribs 6- 10, no chostochondral TTP, no crepitance, no deformity, no ecchymosis, no flail chest, no paradoxical motion Cardiovascular/Chest: normal peripheral pulses, regular rate, rhythm, other - trace symmetric BLE pitting edema Gastrointestinal/Abdominal: normal bowel sounds, non tender, soft Extremity: normal inspection Neurologic: alert, normal mood/affect, oriented x 3 Skin Exam: normal color, warm/dry, other - no external signs of trauma Progress - Progress Progress: Presents with possible rib fracture. I will obtain rib series XR. Pt declines pain medication at this time. Disposition will depend on imaging and pt's course in ED; however, discharge home with f/u, education, instructions, and possible prescription is expected. 16:02 Rechecked pt with spouse at bedside. NAD, VSS, and continues to decline pain medication. I have discussed diagnosis of single rib fracture with pt along with plan for discharge home, prescription, and follow up. He declines pain medication but agrees to use lidocaine patches. I have instructed pt to f/u with PCP. Pt and spouse voice understanding, agree with plan, and all questions answered. - Results/Orders Results/Orders: EXAM DESCRIPTION: Ribs,Right 3 Views CLINICAL HISTORY: 64 years Male, trauma with pleurodynia COMPARISON: None. Findings: 3 view(s)/radiograph(s) Right anterolateral ninth rib fracture. No other fracture identified. Visualized right lung is clear. No pneumothorax. No pleural effusion. No free air beneath the diaphragm. No other acute osseous abnormality identified. IMPRESSION: Right ninth rib fracture. Electronically signed by: Shane Sorto MD 03/23/2020 3:22 PM CDT Departure - Departure Clinical Impression: Right rib fracture Qualifiers: Encounter type: initial encounter Rib fracture type: single rib Fracture type: closed Qualified Code(s): S22.31XA - Fracture of one rib, right side, initial encounter for closed fracture Time of Disposition: 15:48 - witth spouse Disposition: Discharge to Home or Self Care Condition: Excellent Departure Forms: ED Discharge - Pt. Copy, Patient Portal Self Enrollment Instructions: DI for Trauma, Rib Fracture (DC) Referrals: Hammad Williamson MD [Primary Care Provider] - 1 Week Prescriptions: Lidocaine 5% Patch [Lidoderm Patch] 1 ea TOP Q12HRS PRN 5 Days #10 patch PRN Reason: Pain Home Medications: Ambulatory Orders Cetirizine HCl [Zyrtec Allergy] 1 tablet PO PRN PRN 06/26/19 Cyclobenzaprine HCl [Flexeril] 10 mg PO Q8H PRN #30 tab 06/28/19 HYDROcodone 5MG/APAP 325MG [[place] 5/325] 1 ea PO Q4H PRN tab 06/28/19 Lidocaine 5% Patch [Lidoderm Patch] 1 ea TOP Q12HRS PRN 5 Days #10 patch 03/23/20
--- NOTE | 2020-03-23 15:24 | RAD ---
EXAM DESCRIPTION: Ribs,Right 3 Views CLINICAL HISTORY: 64 years Male, trauma with pleurodynia COMPARISON: None. Findings: 3 view(s)/radiograph(s) Right anterolateral ninth rib fracture. No other fracture identified. Visualized right lung is clear. No pneumothorax. No pleural effusion. No free air beneath the diaphragm. No other acute osseous abnormality identified. IMPRESSION: Right ninth rib fracture. Electronically signed by: Shane Sorto MD 03/23/2020 3:22 PM CDT
[2020-03-23 16:03] VITALS: BP 113/71; TEMP 97.2; O2SAT 98
== END 2020-03-23 16:02 | disposition home or self-care (01) ==
LOC: ER 14:41
DX: S22.31XA Fracture of one rib, right side, initial encounter for closed fracture (principal); I11.0 Hypertensive heart disease with heart failure; I50.9 Heart failure, unspecified; F17.200 Nicotine dependence, unspecified, uncomplicated; W17.89XA Other fall from one level to another, initial encounter; Y92.9 Unspecified place or not applicable

== ENCOUNTER → 2020-03-26 | Outpatient (CLI) | payer MEDICARE ==
--- NOTE | 2020-03-26 13:07 | RAD ---
EXAM DESCRIPTION: Left foot, 3 radiographs CLINICAL HISTORY: PAIN IN LEFT FOOT FINDINGS/ IMPRESSION: Hallux valgus. 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 Flatfoot deformity. Large well-corticated plantar calcaneal spur. Prominent posterior lateral process of the talus versus os trigonum, difficult to tell on lateral foot radiograph No fracture. Diffuse mild soft tissue swelling Electronically signed by: Garfield Medeiros MD 03/26/2020 1:05 PM CDT
--- NOTE | 2020-03-26 14:04 | RAD ---
EXAM DESCRIPTION: Foot,Right 3 Views CLINICAL HISTORY: 64 years Male, PAIN IN RIGHT FOOT COMPARISON: July 05, 2016 FINDINGS: Three views of the right foot show no acute fracture or malalignment. Hallux valgus first MTP joint space narrowing. Question old non or partially united first metatarsal base fracture, stable. Large plantar calcaneal enthesophyte. IMPRESSION: Degenerative changes at the first MTP joint including hallux valgus without acute left foot abnormality. Calcaneal spurring and evidence of remote trauma. Electronically signed by: Pedro Pablo Krishna MD 03/26/2020 2:03 PM CDT
== END ==
LOC: RAD 08:55
PROVIDERS: ATTEND Orthopaedic Surgery
DX: M19.072 Primary osteoarthritis, left ankle and foot (principal); M19.071 Primary osteoarthritis, right ankle and foot; M77.31 Calcaneal spur, right foot; M77.32 Calcaneal spur, left foot; M20.11 Hallux valgus (acquired), right foot; M20.12 Hallux valgus (acquired), left foot; M21.42 Flat foot [pes planus] (acquired), left foot; M89.9 Disorder of bone, unspecified; M79.9 Soft tissue disorder, unspecified